=== PATIENT | female | born 1990 | race Caucasian/White ===

== ENCOUNTER 2024-06-06 09:59 | Emergency (ER) | payer BC, SELFPAY ==
[2024-06-06 10:03] VITALS: BP 161/107; PULSE 93; RESP 18; TEMP 36.6; O2SAT 96
[2024-06-06] MEDS: LORazepam 1 mg Tablet PO (10:18)
--- NOTE | 2024-06-06 10:54 | W.ED.PSYCHS ---
HPI - Psych General: Chief Complaint: Psychiatric Symptoms Stated Complaint: MHE Time Seen by Provider: 06/06/24 10:17 History of Present Illness: Patient presents to the ER with anxious and tearfulness. Patient thinks she is having a medication side effect. Patient was started on Abilify hydroxyzine and sertraline in the middle of February and was doing good on a.m. but having increased anxiety so her psychiatrist started her on buspirone about 3 weeks ago. When these episodes of fullness anxiety and having a heightened sense of everything started. She is afraid she is about to go into a manic episode. Has never been on buspirone before. She says the hydroxyzine does not make her too sleepy and she cannot take it more frequently but she is only been using it as needed now. Related Data Home Medications Medication Instructions Recorded Confirmed aripiprazole 5 mg tablet (Abilify) 5 mg PO DAILY 05/18/24 05/18/24 sertraline 50 mg tablet (Zoloft) 50 mg PO DAILY 05/18/24 05/18/24 Previous Rx's Medication Instructions Recorded hydroxyzine HCl 50 mg tablet 50 mg PO TID PRN anxiety #90 tabs 06/06/24 Allergies Allergy/AdvReac Type Severity Reaction Status Date / Time Penicillins Allergy Severe heart Verified 05/18/24 08:42 paplpitations amoxicill Allergy Severe heart Uncoded 05/18/24 08:42 paplpitations Review of Systems General: Reports: 10 or more systems reviewed and unremarkable except in HPI and below PFSH ED PFSH: Medical History Psychiatric care Physical Exam Const: COMMON NORMALS: no acute distress, average body habitus, patient oriented x3, no limitations, healthy appearing, alert and well nourished HENMT: COMMON NORMALS: normocephalic, atraumatic, hearing grossly normal bilaterally, external ears normal, Normal external nose present and moist oral mucous membranes HEAD & SCALP: normocephalic and atraumatic NOSE: Normal external nose present EXTERNAL EAR: Yes external ears normal Neck/C-Spine: COMMON NORMALS: no JVD Chest: COMMONS NORMALS: normal inspection of the chest and normal palpation of entire chest wall Resp: COMMON NORMALS: normal respiratory effort, No retractions, No use of accessory muscles and clear to auscultation bilaterally AUSCULTATION: clear to auscultation bilaterally Cardio: COMMON NORMALS: no JVD, regular rate, regular rhythm, S1 normal heart sound present, S2 normal heart sound present, No gallops present (Cardio), No murmurs present (Cardio) and No rub (Cardio) RATE: regular rate RHYTHM: regular rhythm HEART SOUNDS: S1 normal heart sound present and S2 normal heart sound present Neuro: COMMON NORMALS: patient oriented x3 SENSORIUM/ORIENTATION: Yes alert Course Vital Signs: Vital signs: Vital Signs Temperature 97.9 F 06/06/24 10:03 Pulse Rate 93 06/06/24 10:03 Respiratory Rate 18 06/06/24 10:03 Blood Pressure 161/107 06/06/24 10:03 Pulse Oximetry 96 06/06/24 10:03 Oxygen Delivery Me thod Room Air 06/06/24 10:03 [facility] - Psych Medical Decision Making It appears patient may be having a adverse reaction to the buspirone. We talked about stopping the buspiron and increasing the frequency of the hydroxyzine. We will send this to the patient's pharmacy. Patient knows she should follow back up with her psychiatrist and alert him of the change. Medical Records I reviewed the patient's medical records. Lab Data I reviewed the patient's lab results. No radiology studies performed this visit Discharge Plan Discharge Patient Disposition: Home Clinical Impression: Acute anxiety, Adverse drug effect Condition: Stable Prescriptions: New hydroxyzine HCl 50 mg tablet 50 mg PO TID PRN (Reason: anxiety) Qty: 90 0RF Discontinued hydroxyzine HCl 50 mg tablet 50 mg PO BID PRN buspirone 5 mg tablet 5 mg PO TID PRN (Reason: anxiety) Qty: 90 1RF No Action aripiprazole [Abilify] 5 mg tablet 5 mg PO DAILY sertraline [Zoloft] 50 mg tablet 50 mg PO DAILY Discharge Orders: Discharge ED (Routine); Ordered 06/06/24 Ordered By: Uriah Pollack Referrals: Simba Dumont DO [Primary Care Provider] - 1 week Patient Instructions: Adverse Drug Reaction (ED), Anxiety (ED) Activity Restrictions/Additional Instructions: Please stop your buspirone as this may be causing an adverse drug reaction. Please increase your hydroxyzine up to 1 pill 3 times a day as needed for anxiety. Please follow-up with your family practice physician and psychiatrist within the next 7 to 10 days and alert them of these changes. Coding Level of Care Code ED Environmental Engineer for Alysia Sanchez
[2024-06-06 11:17] VITALS: BP 130/89; PULSE 86; O2SAT 97
== END 2024-06-06 11:19 | disposition home or self-care (01) ==
PROVIDERS: Emergency Provider Emergency Medicine; PCP Family Medicine
DX: F41.8 Other specified anxiety disorders (principal); T50.995A Adverse effect of other drugs, medicaments and biological substances, initial encounter; X58.XXXA Exposure to other specified factors, initial encounter
CPT/HCPCS: 99283

== ENCOUNTER → 2025-01-31 13:33 | Outpatient (BNVA) | payer BC, SELFPAY | PROVIDERS: PCP Family Medicine | DX: F33.41 Major depressive disorder, recurrent, in partial remission (principal) | CPT/HCPCS: 80053; 80061; 83036; 84443; 85025 ==